=== PATIENT | male | born 1970 | race Caucasian/White ===

== ENCOUNTER 2018-08-10 09:37 | Outpatient (CLI) | payer OTHER ==
--- NOTE | 2018-08-11 03:25 | Diagnostic Imaging Report ---
PEARL LYNCH [facility] [id number] [facility].[address] [id number] Report Submission Date: Aug 10, 2018 10:19:50 AM [employer]UFA[employer]URERS SERVICE REPRESENTATIVE Patient Study Name: BRISEIDA PATTERSON Date: Aug 10, 2018 9:44:41 AM MANUFACT[employer]ERS SERVICE REPRESENTATIVE Modality Type: DX Gender: M Description: KNEE 3 VIEWS : 70 Institution: [facility] Physician: PEARL LYNCH Right knee History: Pain Four views of the right knee demonstrate no osseous abnormalities and no joint effusion. Impression: No osseous abnormality. Electronically signed on Aug 10, 2018 10:19:50 AM MANUFACTURERS SERVICE REPRESENTATIVE by: Leonora HALE
== END 2018-08-10 09:40 ==
LOC: RAD 09:37
PROVIDERS: ATTEND Nurse Practitioner Family
DX: M25.461 Effusion, right knee (principal); M25.561 Pain in right knee
CPT/HCPCS: 73562